=== PATIENT | male | born 1985 | race Two or more races ===

== ENCOUNTER 2018-03-02 14:47 | Inpatient (IN) | payer OTHER ==
--- NOTE | 2018-03-02 20:13 | HP ---
COWS - Scale Resting Pulse: 1= [place] 81-100 Sweatin=Flushed/Facial Moisture Restless Observation: 1= Difficult to Sit Still Pupil Size: 1= Pupils >than Normal Bone or Joint Aches: 1= Mild Discomfort Runny Nose/ Eye Tearin= Nasal Congestion GI Upset > 30mins: 3= Vomiting/Diarrhea Tremor Observation: 1= Tremor [place], Not Seen Yawning Observation: 1= 1-2x During Session Anxiety or Irritability: 2=Irritable/Anxious Goose Flesh Skin: 3=Piloerection COWS Score: 17 Admission ROS [facility] Chief Complaint: "I am feeling sick, this is the first time that I've been to detox" Allergies/Adverse Reactions: Allergies Allergy/AdvReac Type Severity Reaction Status Date / Time No Known Allergies Allergy Verified 03/02/18 17:45 History of Present Illness: 32 yo male with hx of heroin and nicotine dependence is here seeking detox for the first time. PMHX: insomnia and depression. Denies suicidal / homicidal ideation or suicide attempts. Denies no significant period of sobriety. Exam Limitations: No Limitations - Ebola screening Have you traveled outside of the country in the last 21 days: No Have you had contact with anyone from an Ebola affected area: No Do you have a fever: No - Review of Systems Constitutional: Diaphoresis, Loss of Appetite, Changes in sleep, Weakness, Unintentional Wgt. Loss EENT: reports: Nose Congestion, Other (decrease sense of smell) Respiratory: reports: No Symptoms reported Cardiac: reports: No Symptoms Reported GI: reports: Diarrhea, Poor Appetite, Poor Fluid Intake, Vomiting, Abdominal cramping : reports: No Symptoms Reported Musculoskeletal: reports: Back Pain Integumentary: reports: No Symptoms Reported Neuro: reports: Headache Endocrine: reports: Increased Thirst Hematology: reports: No Symptoms Reported Psychiatric: reports: Orientated x3, Anxious Other Systems: Reviewed and Negative Patient History - Patient Medical History Hx Asthma: No Hx Chronic Obstructive Pulmonary Disease (COPD): No Hx Cardiac Disorders: No Hx Hypertension: No Hx Seizures: No Hx Diabetes: No Hx Gastrointestinal Disorders: No Hx Genitourinary Disorders: No Hx Sexually Transmitted Disorders: No Hx Renal Disease (ESRD): No Hx Depression: No Hx Suicide Attempt: No Hx Schizophrenia: No - Patient Surgical History Past Surgical History: No Hx Neurologic Surgery: No Hx Cataract Extraction: No Hx Cardiac Surgery: No Hx Lung Surgery: No Hx Breast Surgery: No Hx Breast Biopsy: No Hx Abdominal Surgery: No Hx Appendectomy: No Hx Cholecystectomy: No Hx Genitourinary Surgery: No Hx Section: No Hx Orthopedic Surgery: No Anesthesia Reaction: No - PPD History Previous Implant?: Yes Documented Results: Negative w/o proof - Reproductive History Patient is a Female of Child Bearing Age (11 -55 yrs old): No - Smoking Cessation Smoking history: Current every day smoker Have you smoked in the past 12 months: Yes Aproximately how many cigarettes per day: 20 Hx Chewing Tobacco Use: No Initiated information on smoking cessation: Yes 'Breaking Loose' booklet given: 03/02/18 - Substance & Tx. History Hx Alcohol Use: No Hx Substance Use: Yes Substance Use Type: Heroin Hx Substance Use Treatment: No - Substances Abused Heroin Route: Inhalation Frequency: Daily Amount used: 14 bags Age of first use: 32 Date of Last Use: 03/01/18 Family Disease History - Family Disease History Family Disease History: Other: Father (alive and well ), Mother (alive and well ) Admission Physical Exam [facility] - Physical General Appearance: Yes: Mild Distress, Thin, Sweating, Anxious HEENTM: Yes: EOMI, Hearing grossly Normal, Normal ENT Inspection, Normocephalic , Normal Voice, CHESTER, Pharynx Normal, Tm's normal, Nasal Congestion Respiratory: Yes: Chest Non-Tender, Lungs Clear, Normal Breath Sounds, No Respiratory Distress, No Accessory Muscle Use Neck: Yes: No masses,lesions,Nodules, Trachea in good position Breast: Yes: Breast Exam Deferred Cardiology: Yes: Regular Rhythm Abdominal: Yes: Normal Bowel Sounds, Non Tender, Flat, Soft Genitourinary: Yes: Within Normal Limits Back: Yes: Normal Inspection Musculoskeletal: Yes: full range of Motion, Gait Steady, Pelvis Stable Extremities: Yes: Normal Capillary Refill, Normal Inspection, Normal Range of Motion, Non-Tender Neurological: Yes: operator maintainer II-XII NML intact, Fully Oriented, Alert, Motor Strength 5/5, Depressed Affect Integumentary: Yes: Normal Color, Warm, Diaphoresis Lymphatic: Yes: Within Normal Limits - Diagnostic (1) Opioid dependence with withdrawal Current Visit: Yes Status: Acute (2) Vomiting and diarrhea Current Visit: Yes Status: Acute (3) Nicotine dependence Current Visit: Yes Status: Acute Qualifiers: Nicotine product type: cigarettes (4) Dehydration Current Visit: Yes Status: Acute (5) Depressed mood Current Visit: Yes Status: Acute Cleared for Admission S - Detox or Rehab [facility] Level of Care: Medically Managed Detox Regimen/Protocol: Methadone
[2018-03-02] MEDS ORDERED: MAGNESIUM CITRATE 300 ML BOTTLE PO PRN (20:17)
[2018-03-02] MEDS ORDERED: NICOTINE POLACRILEX 2 MG GUM BC PRN (20:17)
[2018-03-02] MEDS ORDERED: MAG HYDROX/AL HYDROX/SIMETH 30 ML UNIT-DOSE CUP PO PRN (20:17)
[2018-03-02] MEDS ORDERED: MAGNESIUM HYDROX 2400MG/30ML ORAL SUSPENSION 30 ML CUP PO PRN (20:17)
[2018-03-02] MEDS ORDERED: LOPERAMIDE HCL 2 MG CAPSULE PO PRN (20:17)
[2018-03-02] MEDS ORDERED: guaiFENesin/D-METHORPHAN HB 10 ML UNIT-DOSE CUPS PO PRN (20:17)
[2018-03-02] MEDS ORDERED: MENTHOL/PHENOL 1 EACH UD MM PRN (20:17)
[2018-03-02] MEDS ORDERED: METHADONE HCL 10 MG TABLET (FOR DETOX USE ONLY) PO ONE ×2 (20:45→23:00)
[2018-03-02] MEDS: diazePAM 5 MG TABLET PO PRN (21:04)
[2018-03-02] MEDS ORDERED: MELATONIN 5 MG TABLETS PO PRN (22:00)
[2018-03-02] MEDS: THIAMINE HCL 100 MG TABLET (FP) PO SCH (22:22)
[2018-03-02 23:18] LABS: URINE APPEARANCE TURBID; URINE BILIRUBIN NEGATIVE (<2.0 mg/dL); URINE COLOR AMBER; URINE GLUCOSE (UA) NEGATIVE (NEGATIVE); URINE KETONE NEGATIVE (NEGATIVE); URINE LEUK ESTERASE TRACE (NEGATIVE); URINE NITRITE NEGATIVE (NEGATIVE)
[2018-03-02 23:20] LABS: URINE PROTEIN 1+ (NEGATIVE)
[2018-03-02 23:23] LABS: EPI CELLS RARE /HPF (FEW); URINE MUCUS MANY
[2018-03-03 09:48] LABS: HEMATOCRIT 40.5 % (35.4-49); HEMOGLOBIN 13.7 GM/dL (11.7-16.9); MCH 29.9 pg (25.7-33.7); MCHC 33.9 g/dl (32.0-35.9); MEAN CELL VOLUME 88.2 fl (80-96); MEAN PLT VOLUME 8.7 fl (7.5-11.1); PLATELET COUNT 253 K/MM3 (134-434); RBC 4.59 M/mm3 (4.00-5.60); RDW 14.5 % (11.9-15.9); WHITE BLOOD COUNT 7.6 K/mm3 (4.0-10.0)
--- NOTE | 2018-03-03 09:52 | EKG ---
Test Reason : Blood Pressure : / mmHG Vent. Rate : 082 BPM Atrial Rate : 082 BPM P-R Int : 156 ms QRS Dur : 090 ms QT Int : 362 ms P-R-T Axes : 075 075 062 degrees QTc Int : 422 ms NORMAL SINUS RHYTHM NORMAL ECG NO PREVIOUS ECGS AVAILABLE Confirmed by MD Ivis, Saran ([id number]) on 03/03/2018 9:51:51 AM Referred By: Confirmed By:Saran Langston MD
[2018-03-03] MEDS ORDERED: METHADONE HCL 10 MG TABLET (FOR DETOX USE ONLY) PO ONE (10:00)
[2018-03-03 10:03] LABS: CHLORIDE 106 mmol/L (98-107); POTASSIUM 3.9 mmol/L (3.5-5.1); SODIUM 140 mmol/L (136-145)
--- NOTE | 2018-03-03 10:18 | PN ---
BHS COWS - Scale Resting Pulse: 0= [place] 80 or Below Sweatin= Chills/Flushing Restless Observation: 1= Difficult to Sit Still Pupil Size: 1= Pupils >than Normal Bone or Joint Aches: 2= Severe Diffuse Aches Runny Nose/ Eye Tearin= Runny Nose/Eyes GI Upset > 30mins: 2= Nausea/Diarrhea Tremor Observation of Outstretched Hands: 2= Slight Tremor Visible Yawning Observation: 2= >3x During Session Anxiety or Irritability: 2=Irritable/Anxious Goose Flesh Skin: 0=Smooth Skin COWS Score: 15 BHS Progress Note (SOAP) Subjective: sweat tremor anxiety restlessness joint pain body ache Objective: 03/03/18 10:38 Vital Signs Temperature 97.8 F 03/03/18 09:30 Pulse Rate 76 03/03/18 09:30 Respiratory Rate 16 03/03/18 09:30 Blood Pressure 120/73 03/03/18 09:30 O2 Sat by Pulse Oximetry (%) Laboratory Last Values WBC 7.6 K/mm3 (4.0-10.0) 03/03/18 07:30 RBC 4.59 M/mm3 (4.00-5.60) 03/03/18 07:30 Hgb 13.7 GM/dL (11.7-16.9) 03/03/18 07:30 Hct 40.5 % (35.4-49) 03/03/18 07:30 MCV 88.2 fl (80-96) 03/03/18 07:30 MCH 29.9 pg (25.7-33.7) 03/03/18 07:30 MCHC 33.9 g/dl (32.0-35.9) 03/03/18 07:30 RDW 14.5 % (11.9-15.9) 03/03/18 07:30 Plt Count 253 K/MM3 (134-434) 03/03/18 07:30 MPV 8.7 fl (7.5-11.1) 03/03/18 07:30 Sodium 140 mmol/L (136-145) 03/03/18 07:30 Potassium 3.9 mmol/L (3.5-5.1) 03/03/18 07:30 Chloride 106 mmol/L (98-107) 03/03/18 07:30 Urine Color Christa 03/02/18 18:17 Urine Appearance Turbid 03/02/18 18:17 Urine pH 5.0 (5.0-8.0) 03/02/18 18:17 Ur Specific [place] 1.032 (1.001-1.035) 03/02/18 18:17 Urine Protein 1+ (NEGATIVE) H 03/02/18 18:17 Urine Glucose (UA) Negative (NEGATIVE) 03/02/18 18:17 Urine Ketones Negative (NEGATIVE) 03/02/18 18:17 Urine Blood Negative (NEGATIVE) 03/02/18 18:17 Urine Nitrite Negative (NEGATIVE) 03/02/18 18:17 Urine Bilirubin Negative (<2.0 mg/dL) 03/02/18 18:17 Urine Urobilinogen 2.0 mg/dL (0.2-1.0) 03/02/18 18:17 Ur Leukocyte Esterase Trace (NEGATIVE) 03/02/18 18:17 Urine WBC (Auto) 97 /hpf (3-5) 03/02/18 18:17 Urine RBC (Auto) 4 /hpf (0-3) 03/02/18 18:17 Ur Epithelial Cells Rare /HPF (FEW) 03/02/18 18:17 Urine Mucus Many 03/02/18 18:17 lab noted repeat ua Assessment: 03/03/18 10:39 withdrawal sx Plan: continue detox
[2018-03-03] MEDS: PRENATAL VITAMINS W/ FOLIC ACID TABLET (FP) PO SCH (10:37)
[2018-03-03] MEDS: diazePAM 5 MG TABLET PO PRN ×2 (10:38→19:58)
[2018-03-03] MEDS: NICOTINE 14 MG/24 HOURS TOPICAL PATCH TD SCH (10:38)
[2018-03-03] MEDS: IBUPROFEN 400 MG TABLET (FP) PO PRN (10:39)
[2018-03-03] MEDS: P-EPHED 60MG/TRIPROLIDI 2.5MG TABLET PO PRN (10:42)
[2018-03-03 10:45] LABS: ALBUMIN 4.1 g/dl (3.4-5.0); ALK PHOS 67 U/L (45-117); ANION GAP 8 (8-16); BILIRUBIN,TOTAL 1.8 mg/dL (0.2-1.0); BLOOD UREA NITROGEN 11 mg/dL (7-18); CALCIUM 8.9 mg/dL (8.5-10.1); CO2 26 mmol/L (21-32); CREATININE 0.8 mg/dL (0.7-1.3); GLUCOSE,RANDOM 96 mg/dL (74-106); SGOT/AST 11 U/L (15-37); SGPT/ALT 12 U/L (12-78)
--- NOTE | 2018-03-03 11:59 | CONSULT ---
[facility] Psychiatric Consult - Data Date of interview: 03/03/18 Admission source: [facility] Identifying data: Patient is a 32 year old male, father of one, domiciled and currently employed. This is patient's first admission to detox at [facility]. Pt. admitted to for opioid dependence. Substance Abuse History: - Smoking Cessation. Smoking history: Current every day smoker. Have you smoked in the past 12 months: Yes. Aproximately how many cigarettes per day: 20. Hx Chewing Tobacco Use: No. Initiated information on smoking cessation: Yes. 'Breaking Loose' booklet given: 03/02/18. - Substance & Tx. History. Hx Alcohol Use: No. Hx Substance Use: Yes. Substance Use Type : Heroin. Hx Substance Use Treatment: No. - Substances Abused. Heroin. Route: Inhalation. Frequency: Daily. Amount used: 14 bags. Age of first use: 32. Date of Last Use: 03/01/18 Medical History: Denies. Psychiatric History: Patient denies h/o psychiatric hospitalizations. States he recetly started to see a psychiatrist last month but has yet to be prescribed medications. Patient denies h/o suicide attempts. Pt requesting a sleep aid. Physical/Sexual Abuse/Trauma History: Denies. Mental Status Exam - Mental Status Exam Alert and Oriented to: Time, Place, Person Cognitive Function: Good Patient Appearance: Well Groomed Mood: Withdrawn Affect: Mood Congruent Patient Behavior: Fatigued Speech Pattern: Delayed Voice Loudness: Moderately Soft/Quiet Thought Process: Intact, Goal Oriented Thought Disorder: Not Present Hallucinations: Denies Suicidal Ideation: Denies Homicidal Ideation: Denies Insight/Judgement: Poor Sleep: Poorly Appetite: Fair Muscle strength/Tone: Normal Gait/Station: Normal Psychiatric Findings - Problem List ([place] 1, 2,3) (1) Insomnia Current Visit: Yes Status: Acute (2) Opioid dependence with withdrawal Current Visit: Yes Status: Acute (3) Nicotine dependence Current Visit: Yes Status: Chronic Qualifiers: Nicotine product type: cigarettes - Initial Treatment Plan Initial Treatment Plan: Psychoeducation provided. Detoxification in progress. Benadryl 50mg qhs ordered. Benefits and side effects discussed. Verbal consent given. Will continue to monitor.
[2018-03-03] MEDS: THIAMINE HCL 100 MG TABLET (FP) PO SCH (22:51)
[2018-03-04] MEDS ORDERED: diphenhydrAMINE HCL 25 MG CAPSULE (FP) PO ONE ×2 (00:29→20:57)
[2018-03-04] MEDS: diphenhydrAMINE HCL 50 MG CAPSULE PO PRN ×2 (00:31→22:36)
[2018-03-04] MEDS: diazePAM 5 MG TABLET PO PRN ×3 (00:31→20:24)
[2018-03-04] MEDS: IBUPROFEN 400 MG TABLET (FP) PO PRN ×2 (00:31→20:24)
[2018-03-04] MEDS: hydrOXYzine PAMOATE 50 MG CAPSULE (FP) PO PRN (03:49)
[2018-03-04] MEDS: P-EPHED 60MG/TRIPROLIDI 2.5MG TABLET PO PRN (04:01)
[2018-03-04] MEDS ORDERED: METHADONE HCL 5 MG TABLET (FOR DETOX USE ONLY) PO ONE (10:00)
[2018-03-04] MEDS: NICOTINE 14 MG/24 HOURS TOPICAL PATCH TD SCH (10:14)
[2018-03-04] MEDS: PRENATAL VITAMINS W/ FOLIC ACID TABLET (FP) PO SCH (10:14)
--- NOTE | 2018-03-04 11:35 | PN ---
BHS COWS - Scale Resting Pulse: 0= [place] 80 or Below Sweatin= Chills/Flushing Restless Observation: 1= Difficult to Sit Still Pupil Size: 1= Pupils >than Normal Bone or Joint Aches: 1= Mild Discomfort Runny Nose/ Eye Tearin= Nasal Congestion GI Upset > 30mins: 1= Stomach Cramp Tremor Observation of Outstretched Hands: 2= Slight Tremor Visible Yawning Observation: 2= >3x During Session Anxiety or Irritability: 2=Irritable/Anxious Goose Flesh Skin: 0=Smooth Skin COWS Score: 12
--- NOTE | 2018-03-04 11:39 | PN ---
BHS Progress Note (SOAP) Subjective: sweat chill hot cold trouble sleep at night anxiety restlessness Objective: 03/04/18 11:37 Vital Signs Temperature 95.9 F L 03/04/18 09:12 Pulse Rate 68 03/04/18 09:12 Respiratory Rate 18 03/04/18 09:12 Blood Pressure 124/65 03/04/18 09:12 O2 Sat by Pulse Oximetry (%) Laboratory Last Values WBC 7.6 K/mm3 (4.0-10.0) 03/03/18 07:30 RBC 4.59 M/mm3 (4.00-5.60) 03/03/18 07:30 Hgb 13.7 GM/dL (11.7-16.9) 03/03/18 07:30 Hct 40.5 % (35.4-49) 03/03/18 07:30 MCV 88.2 fl (80-96) 03/03/18 07:30 MCH 29.9 pg (25.7-33.7) 03/03/18 07:30 MCHC 33.9 g/dl (32.0-35.9) 03/03/18 07:30 RDW 14.5 % (11.9-15.9) 03/03/18 07:30 Plt Count 253 K/MM3 (134-434) 03/03/18 07:30 MPV 8.7 fl (7.5-11.1) 03/03/18 07:30 Sodium 140 mmol/L (136-145) 03/03/18 07:30 Potassium 3.9 mmol/L (3.5-5.1) 03/03/18 07:30 Chloride 106 mmol/L (98-107) 03/03/18 07:30 Carbon Dioxide 26 mmol/L (21-32) 03/03/18 07:30 Anion Gap 8 (8-16) 03/03/18 07:30 BUN 11 mg/dL (7-18) 03/03/18 07:30 Creatinine 0.8 mg/dL (0.7-1.3) 03/03/18 07:30 Creat Clearance w eGFR > 60 (>60) 03/03/18 07:30 Random Glucose 96 mg/dL (74-106) 03/03/18 07:30 Calcium 8.9 mg/dL (8.5-10.1) 03/03/18 07:30 Total Bilirubin 1.8 mg/dL (0.2-1.0) H 03/03/18 07:30 AST 11 U/L (15-37) L 03/03/18 07:30 ALT 12 U/L (12-78) 03/03/18 07:30 Alkaline Phosphatase 67 U/L (45-117) 03/03/18 07:30 Total Protein 7.0 g/dl (6.4-8.2) 03/03/18 07:30 Albumin 4.1 g/dl (3.4-5.0) 03/03/18 07:30 Urine Color Christa 03/02/18 18:17 Urine Appearance Turbid 03/02/18 18:17 Urine pH 5.0 (5.0-8.0) 03/02/18 18:17 Ur Specific [place] 1.032 (1.001-1.035) 03/02/18 18:17 Urine Protein 1+ (NEGATIVE) H 03/02/18 18:17 Urine Glucose (UA) Negative (NEGATIVE) 03/02/18 18:17 Urine Ketones Negative (NEGATIVE) 03/02/18 18:17 Urine Blood Negative (NEGATIVE) 03/02/18 18:17 Urine Nitrite Negative (NEGATIVE) 03/02/18 18:17 Urine Bilirubin Negative (<2.0 mg/dL) 03/02/18 18:17 Urine Urobilinogen 2.0 mg/dL (0.2-1.0) 03/02/18 18:17 Ur Leukocyte Esterase Trace (NEGATIVE) 03/02/18 18:17 Urine WBC (Auto) 97 /hpf (3-5) 03/02/18 18:17 Urine RBC (Auto) 4 /hpf (0-3) 03/02/18 18:17 Ur Epithelial Cells Rare /HPF (FEW) 03/02/18 18:17 Urine Mucus Many 03/02/18 18:17 RPR Titer Nonreactive (NONREACTIVE) 03/03/18 07:30 HIV 1&2 Antibody Screen Negative 03/03/18 07:30 HIV P24 Antigen Negative 03/03/18 07:30 lab noted Assessment: 03/04/18 11:38 withdrawal sx Plan: continue detox
[2018-03-04] MEDS ORDERED: BACLOFEN 10 MG TABLET (FP) PO ONE (13:00)
[2018-03-04 19:58] LABS: URINE APPEARANCE SLCLOUDY; URINE BILIRUBIN NEGATIVE (<2.0 mg/dL); URINE COLOR YELLOW; URINE GLUCOSE (UA) NEGATIVE (NEGATIVE); URINE KETONE NEGATIVE (NEGATIVE); URINE LEUK ESTERASE TRACE (NEGATIVE); URINE NITRITE NEGATIVE (NEGATIVE); URINE UROBILINOGEN 4.0 E.U/dl mg/dL (0.2-1.0)
[2018-03-04 20:02] LABS: URINE PROTEIN 1+ (NEGATIVE)
[2018-03-04 20:16] LABS: CALCIUM OXALATE CRYSTALS FEW /hpf (NONE SEEN); EPI CELLS RARE /HPF (FEW); URINE MUCUS MANY
--- NOTE | 2018-03-04 20:47 | PN ---
S Progress Note Note: Vital Signs Temperature 98.2 F 03/04/18 18:35 Pulse Rate 69 03/04/18 18:35 Respiratory Rate 16 03/04/18 18:35 Blood Pressure 100/60 03/04/18 18:35 O2 Sat by Pulse Oximetry (%) Patient with continuous vomiting one time order of Tigan Increase fluids continue to monitor
[2018-03-04] MEDS ORDERED: TRIMETHOBENZAMIDE HCL 200MG/2ML INJ IM ONE (21:00)
[2018-03-04] MEDS: THIAMINE HCL 100 MG TABLET (FP) PO SCH (22:36)
[2018-03-05] MEDS: diazePAM 5 MG TABLET PO PRN ×2 (00:31→08:56)
[2018-03-05] MEDS: hydrOXYzine PAMOATE 50 MG CAPSULE (FP) PO PRN ×2 (01:23→11:32)
[2018-03-05] MEDS: ACETAMINOPHEN 325 MG TABLET (FP) PO PRN ×2 (01:23→11:00)
[2018-03-05] MEDS ORDERED: cloNIDine HCL 0.1 MG TABLET PO ONE ×2 (03:31→10:00)
[2018-03-05 06:29] VITALS: PULSE 82
[2018-03-05] MEDS ORDERED: TRIMETHOBENZAMIDE HCL 200MG/2ML INJ IM PRN (07:20)
[2018-03-05] MEDS ORDERED: RANITIDINE HCL 150 MG TABLET (FP) PO SCH ×2 (09:00→10:00)
[2018-03-05] MEDS ORDERED: ONDANSETRON *ODT* 4 MG TABLET SL PRN (09:00)
[2018-03-05 09:25] VITALS: BP 134/73; TEMP 96.8
[2018-03-05] MEDS: PRENATAL VITAMINS W/ FOLIC ACID TABLET (FP) PO SCH (09:29)
[2018-03-05] MEDS: P-EPHED 60MG/TRIPROLIDI 2.5MG TABLET PO PRN (09:30)
[2018-03-05] MEDS ORDERED: METHADONE HCL 5 MG TABLET (FOR DETOX USE ONLY) PO ONE (10:00)
--- NOTE | 2018-03-05 11:05 | PN ---
S Progress Note (SOAP) Subjective: sweat tremor trouble sleep at night, nausea vomiting, gi distress joint pain body ache anxiety restlessness Objective: 03/05/18 10:50 Vital Signs Temperature 96.8 F L 03/05/18 09:23 Pulse Rate 82 03/05/18 09:23 Respiratory Rate 18 03/05/18 09:23 Blood Pressure 134/73 03/05/18 09:23 O2 Sat by Pulse Oximetry (%) Laboratory Last Values WBC 7.6 K/mm3 (4.0-10.0) 03/03/18 07:30 RBC 4.59 M/mm3 (4.00-5.60) 03/03/18 07:30 Hgb 13.7 GM/dL (11.7-16.9) 03/03/18 07:30 Hct 40.5 % (35.4-49) 03/03/18 07:30 MCV 88.2 fl (80-96) 03/03/18 07:30 MCH 29.9 pg (25.7-33.7) 03/03/18 07:30 MCHC 33.9 g/dl (32.0-35.9) 03/03/18 07:30 RDW 14.5 % (11.9-15.9) 03/03/18 07:30 Plt Count 253 K/MM3 (134-434) 03/03/18 07:30 MPV 8.7 fl (7.5-11.1) 03/03/18 07:30 Sodium 140 mmol/L (136-145) 03/03/18 07:30 Potassium 3.9 mmol/L (3.5-5.1) 03/03/18 07:30 Chloride 106 mmol/L (98-107) 03/03/18 07:30 Carbon Dioxide 26 mmol/L (21-32) 03/03/18 07:30 Anion Gap 8 (8-16) 03/03/18 07:30 BUN 11 mg/dL (7-18) 03/03/18 07:30 Creatinine 0.8 mg/dL (0.7-1.3) 03/03/18 07:30 Creat Clearance w eGFR > 60 (>60) 03/03/18 07:30 Random Glucose 96 mg/dL (74-106) 03/03/18 07:30 Calcium 8.9 mg/dL (8.5-10.1) 03/03/18 07:30 Total Bilirubin 1.8 mg/dL (0.2-1.0) H 03/03/18 07:30 AST 11 U/L (15-37) L 03/03/18 07:30 ALT 12 U/L (12-78) 03/03/18 07:30 Alkaline Phosphatase 67 U/L (45-117) 03/03/18 07:30 Total Protein 7.0 g/dl (6.4-8.2) 03/03/18 07:30 Albumin 4.1 g/dl (3.4-5.0) 03/03/18 07:30 Urine Color Yellow 03/04/18 15:00 Urine Appearance Slcloudy 03/04/18 15:00 Urine pH 7.0 (5.0-8.0) D 03/04/18 15:00 Ur Specific [place] 1.024 (1.001-1.035) 03/04/18 15:00 Urine Protein 1+ (NEGATIVE) H 03/04/18 15:00 Urine Glucose (UA) Negative (NEGATIVE) 03/04/18 15:00 Urine Ketones Negative (NEGATIVE) 03/04/18 15:00 Urine Blood Negative (NEGATIVE) 03/04/18 15:00 Urine Nitrite Negative (NEGATIVE) 03/04/18 15:00 Urine Bilirubin Negative (<2.0 mg/dL) 03/04/18 15:00 Urine Urobilinogen 4.0 e.u/dl mg/dL (0.2-1.0) 03/04/18 15:00 Ur Leukocyte Esterase Trace (NEGATIVE) 03/04/18 15:00 Urine WBC (Auto) 14 /hpf (3-5) 03/04/18 15:00 Urine RBC (Auto) 9 /hpf (0-3) 03/04/18 15:00 Ur Epithelial Cells Rare /HPF (FEW) 03/04/18 15:00 Calcium Oxalate Crystal Few /hpf (NONE SEEN) 03/04/18 15:00 Urine Mucus Many 03/04/18 15:00 RPR Titer Nonreactive (NONREACTIVE) 03/03/18 07:30 HIV 1&2 Antibody Screen Negative 03/03/18 07:30 HIV P24 Antigen Negative 03/03/18 07:30 lab noted repeat ua 03/05/18 11:06 alert feeling better after zofrain and methadone and clonidine Assessment: 03/05/18 11:05 withdrawal sx Plan: continue detox showered feeling better
[2018-03-05] MEDS: NICOTINE 14 MG/24 HOURS TOPICAL PATCH TD SCH (11:17)
[2018-03-05] MEDS ORDERED: BACLOFEN 10 MG TABLET (FP) PO ONE (11:30)
--- NOTE | 2018-03-05 12:25 | DS ---
[facility] Detox Discharge Summary Admission Date: 03/02/18 Discharge Date: 03/05/18 - History Present History: Opioid Dependence Additional Comments: 32 years old male admitted on 03/02/18 for opioid detox insists to leave the detox facility patient reported that began opioid addiction 6 months ago first detox experience wants to terminate the detox regimen that feeling better now "self management" patient is alert oriented x 3 no acute distress steady gait had shower feeling better and wants to leave the facility health teaching on opioid addiction and consequences of health and social issues related opioid addiction - Physical Exam Results Vital Signs: Vital Signs Temperature 96.8 F L 03/05/18 09:23 Pulse Rate 82 03/05/18 09:23 Respiratory Rate 18 03/05/18 09:23 Blood Pressure 134/73 03/05/18 09:23 O2 Sat by Pulse Oximetry (%) Pertinent Admission Physical Exam Findings: Vital Signs Temperature 96.8 F L 03/05/18 09:23 Pulse Rate 82 03/05/18 09:23 Respiratory Rate 18 03/05/18 09:23 Blood Pressure 134/73 03/05/18 09:23 O2 Sat by Pulse Oximetry (%) Laboratory Last Values WBC 7.6 K/mm3 (4.0-10.0) 03/03/18 07:30 RBC 4.59 M/mm3 (4.00-5.60) 03/03/18 07:30 Hgb 13.7 GM/dL (11.7-16.9) 03/03/18 07:30 Hct 40.5 % (35.4-49) 03/03/18 07:30 MCV 88.2 fl (80-96) 03/03/18 07:30 MCH 29.9 pg (25.7-33.7) 03/03/18 07:30 MCHC 33.9 g/dl (32.0-35.9) 03/03/18 07:30 RDW 14.5 % (11.9-15.9) 03/03/18 07:30 Plt Count 253 K/MM3 (134-434) 03/03/18 07:30 MPV 8.7 fl (7.5-11.1) 03/03/18 07:30 Sodium 140 mmol/L (136-145) 03/03/18 07:30 Potassium 3.9 mmol/L (3.5-5.1) 03/03/18 07:30 Chloride 106 mmol/L (98-107) 03/03/18 07:30 Carbon Dioxide 26 mmol/L (21-32) 03/03/18 07:30 Anion Gap 8 (8-16) 03/03/18 07:30 BUN 11 mg/dL (7-18) 03/03/18 07:30 Creatinine 0.8 mg/dL (0.7-1.3) 03/03/18 07:30 Creat Clearance w eGFR > 60 (>60) 03/03/18 07:30 Random Glucose 96 mg/dL (74-106) 03/03/18 07:30 Calcium 8.9 mg/dL (8.5-10.1) 03/03/18 07:30 Total Bilirubin 1.8 mg/dL (0.2-1.0) H 03/03/18 07:30 AST 11 U/L (15-37) L 03/03/18 07:30 ALT 12 U/L (12-78) 03/03/18 07:30 Alkaline Phosphatase 67 U/L (45-117) 03/03/18 07:30 Total Protein 7.0 g/dl (6.4-8.2) 03/03/18 07:30 Albumin 4.1 g/dl (3.4-5.0) 03/03/18 07:30 Urine Color Yellow 03/04/18 15:00 Urine Appearance Slcloudy 03/04/18 15:00 Urine pH 7.0 (5.0-8.0) D 03/04/18 15:00 Ur Specific [place] 1.024 (1.001-1.035) 03/04/18 15:00 Urine Protein 1+ (NEGATIVE) H 03/04/18 15:00 Urine Glucose (UA) Negative (NEGATIVE) 03/04/18 15:00 Urine Ketones Negative (NEGATIVE) 03/04/18 15:00 Urine Blood Negative (NEGATIVE) 03/04/18 15:00 Urine Nitrite Negative (NEGATIVE) 03/04/18 15:00 Urine Bilirubin Negative (<2.0 mg/dL) 03/04/18 15:00 Urine Urobilinogen 4.0 e.u/dl mg/dL (0.2-1.0) 03/04/18 15:00 Ur Leukocyte Esterase Trace (NEGATIVE) 03/04/18 15:00 Urine WBC (Auto) 14 /hpf (3-5) 03/04/18 15:00 Urine RBC (Auto) 9 /hpf (0-3) 03/04/18 15:00 Ur Epithelial Cells Rare /HPF (FEW) 03/04/18 15:00 Calcium Oxalate Crystal Few /hpf (NONE SEEN) 03/04/18 15:00 Urine Mucus Many 03/04/18 15:00 RPR Titer Nonreactive (NONREACTIVE) 03/03/18 07:30 HIV 1&2 Antibody Screen Negative 03/03/18 07:30 HIV P24 Antigen Negative 03/03/18 07:30 lab noted - Treatment Hospital Course: Detox Protocol Followed, Responded well Patient has Accepted a Rehab Referral to: community self support management groups - Medication Discharge Medications: Ambulatory Orders NK [No Known Home Medication] 03/02/18 - Diagnosis (1) Opioid dependence with withdrawal Status: Acute (2) Nicotine dependence Status: Acute Qualifiers: Nicotine product type: cigarettes Substance use status: in withdrawal Qualified Code(s): F17.213 - Nicotine dependence, cigarettes, with withdrawal - AMA Did Patient Leave Against Medical Advice: Yes
[2018-03-06] MEDS ORDERED: METHADONE HCL 10 MG TABLET (FOR DETOX USE ONLY) PO ONE (10:00)
[2018-03-07] MEDS ORDERED: METHADONE HCL 5 MG TABLET (FOR DETOX USE ONLY) PO ONE (06:00)
== END 2018-03-05 12:16 | disposition left against medical advice (07) | DRG 770 ==
LOC: YASAS 14:47 → Y6N 19:31
PROVIDERS: ADMIT Surgery; ATTEND Surgery
PROC: HZ2ZZZZ Detoxification Services for Substance Abuse Treatment (ICD-10-PCS; principal; 2018-03-02)
DX: F11.23 Opioid dependence with withdrawal (principal); F17.210 Nicotine dependence, cigarettes, uncomplicated; F32.9 Major depressive disorder, single episode, unspecified; G47.00 Insomnia, unspecified; E86.0 Dehydration; R11.10 Vomiting, unspecified; R19.7 Diarrhea, unspecified
CPT/HCPCS: 36415; 80053; 81003; 81015; 85027; 86593; 87389; 93005; 93010; J0475; J0735